=== PATIENT | male | born 1950 ===

== ENCOUNTER 2018-09-09 07:29 | Outpatient (CLI) | payer OTHER ==
[~2018-09-09 07:29] MED LIST: B COMPLETE1 TAB PO; CARDURA1 MG PO; NORVASC10 MG PO; OMEPRAZOLE20 MG PO
== END 2018-09-09 07:40 | disposition home or self-care (01) ==
LOC: LAB 07:29
DX: C61 Malignant neoplasm of prostate (principal)

== ENCOUNTER 2018-09-09 08:17 | Outpatient (CLI) | payer OTHER | END 2018-09-09 15:47 | disposition home or self-care (01) | LOC: TOM 08:17 | DX: C61 Malignant neoplasm of prostate (principal); Z85.46 Personal history of malignant neoplasm of prostate; D51.0 Vitamin B12 deficiency anemia due to intrinsic factor deficiency; D51.3 Other dietary vitamin B12 deficiency anemia; K22.70 Barrett's esophagus without dysplasia; D50.8 Other iron deficiency anemias; K29.40 Chronic atrophic gastritis without bleeding; K21.0 Gastro-esophageal reflux disease with esophagitis; I73.89 Other specified peripheral vascular diseases; C44 Other and unspecified malignant neoplasm of skin; E55.9 Vitamin D deficiency, unspecified; K57.30 Diverticulosis of large intestine without perforation or abscess without bleeding; N20.0 Calculus of kidney; I10 Essential (primary) hypertension; E78.49 Other hyperlipidemia; I80.221 Phlebitis and thrombophlebitis of right popliteal vein | CPT/HCPCS: 71270; 74178; Q9965 ==

== ENCOUNTER 2021-02-20 09:41 | Outpatient (CLI) | payer OTHER | END 2021-02-20 09:45 | disposition home or self-care (01) | LOC: SONOGRAMA 09:41 | PROVIDERS: ATTEND Pathology Anatomic Pathology & Clinical Pathology | DX: E04.2 Nontoxic multinodular goiter (principal) ==